=== PATIENT | male | born 1940 | race Caucasian/White ===

== ENCOUNTER 2017-01-07 14:35 | Emergency (ER) | payer MEDICARE, OTHER ==
[~2017-01-07] VITALS: Ht 177.8 cm; Wt 96.4 kg
[2017-01-07 14:41] VITALS: BP 141/90; PULSE 94; RESP 18; O2SAT 98
--- NOTE | 2017-01-07 15:07 | ED.REPORT ---
HPI-Extremity Problem Lower Date of Service Jan 07, 2017 ED Provider: Jose J Galan MD The patient is a 76 year old male with history of diabetes mellitus and gout, who presents to the emergency department complaining of right foot pain that began 2 weeks ago. His pain has became significantly worse in the last few days. His pain is worse with weight bearing and walking. He also reports numbness to his right foot. The pain is not similar to previous gout flares. He denies recent injuries or traumas. He denies rash, fever, chills, nausea or vomiting. Nursing Notes Stated Complaint: R FOOT PAIN Chief Complaint: Extremity Trauma Nursing Notes Reviewed: Yes Allergies: Uncoded Allergies: NARCOTIC PAIN MEDS (Allergy, Severe, difficulty waking him up, 01/07/17) Scheduled PRN Hydrocodone-Acetaminophen 5-325 mg (Hydrocodone-Acetaminophen 5-325 mg) 1 Each Tablet 1 TABLET PO Q4H PRN PRN For Pain General Time Seen by MD: 14:46 Chief Complaint Foot injury right Hx Obtained From: Patient Arrived By: Walk-in Onset Occurred: More than a week ago... Symptom Duration: Since onset Location: : Foot right Quality: Painful Severity: Current: Moderate Severity: Maximum: Moderate Pertinent Negative: Pt denies other symptoms Exacerbated by: Movement Relieved by: Immobilization Recent Healthcare: No recent doctor visit, No recent hospitalization Similar Sx Previous: No Past Medical History Past Medical History Diabetes mellitus Gout Coronary artery disease Past Surgical History CABG Social History Other Social History: Local resident Ambulatory Status Independent Review of Systems Constitutional: Denies: Chills, Fever Musculoskeletal: Reports: Extremity pain, Extremity swelling Neurologic: Reports: Numbness Complete sys rev & neg: except as marked. GI: Denies: Nausea, Vomiting Physical Exam Initial Vital Signs Vital Signs (First) Date Time Temp Pulse Resp B/P Pulse Ox O2 Delivery O2 Flow Rate FiO2 01/07/17 14:41 36.2 94 18 141/90 98 Room Air Initial VS: Reviewed Head / Eyes: Atraumatic, Normocephalic, PERRL ENT: Mucous membranes moist, Conjunctiva normal, No scleral icterus Neck: Supple, Non-tender, Full range of motion Respiratory: Breath sounds normal, Clear to auscultation, No respiratory distress Cardiovascular: Regular rate & rhythm, Heart sounds normal, Intact distal pulses Abdomen / GI: Soft, Non-tender, No guarding, No rebound, No distention Lymphatic: No lymphadenopathy Upper Extremities: Vascular intact, Neuro intact, No swelling, No tenderness Skin: Warm, Dry, No cyanosis Neurologic: Alert, Oriented, Nonfocal Psychiatric: Mood/affect normal, Behavior normal, Normal thought content Lower Extremity / Pelvis / MS: Neurologic intact, Vascular intact, No edema No calf swelling or tenderness Ankle / Foot: Neurologic intact, Vascular intact There is mild swelling about the medial aspect of the right foot beneath the medial malleolus with mild tenderness. There is no significant erythema, warmth or redness. Neurovascular intact. 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 No acute fracture. No osseous lesion. If symptoms and/or clinical suspicion for pathology persist, further assessment with repeat, or advanced imaging (e.g., CT, MRI, or bone scan) may be helpful for further assessment. Dictated by: Christine Foster M.D. on 01/07/2017 at 17:33 X-Ray Ordered: Foot right Interpretation / Wet Read by: Interpret - Radiologist Re-Eval/Medical Decision Med Decision/Clinical Course The patient is a 76 year old male with history of diabetes mellitus and gout, who presents to the emergency department complaining of right foot pain that began 2 weeks ago. Here in the emergency department the patient is afebrile with stable vital signs and examination as above. Plain films of the affected foot demonstrate no acute fracture or bony abnormality. The patient is neurovascularly intact in the affected foot. There is no evidence of abscess or cellulitis. The patient has tenderness about the medial foot with some mild swelling though there is no erythema redness or warmth. The presentation is unconvincing for acute gout flare. I suspect that the patient's pain is musculoskeletal in etiology. I have recommended that he elevate the foot and apply ice packs. He is prescribed a limited supply of [place] as he is unable to take NSAIDs. He will follow up closely with primary care physician and we have referred him to the residency clinic. Prior to discharge follow-up and return precautions were reviewed in detail with the patient who verbalized understanding and agreement with the plan. The patient was discharged in stable condition. Source of Hx: Old records Re-Evaluation/Progress #1: Time of Eval: 16:50 Re-Evaluation/Progress Note: Discussed plan for x-rays and discharge if negative. Will give the patient an outpatient primary care referral. Re-Evaluation/Progress #2: Time of Eval: 17:40 Re-Evaluation/Progress Note: Rechecked the patient. Discussed x-ray results, diagnosis, and plan for discharge. All questions were addressed. Counseled Regarding: Diagnosis, Need for follow-up, When/why to return to ED Discharge & Departure Impression: Primary Impression: Foot pain, right Additional Impression: History of gout Disposition: Home Discharge Condition All VS Reviewed: Yes Condition: Stable Additional Instructions: Thank you for seeking care at the emergency room. Our primary goal today in the ED was to evaluate you for any life-threatening conditions. Your evaluation was reassuring. I see no fractures or signs of infection or fracture. Your presentation does not seem like a gout flare. You will be discharged with a prescription for pain medication. Please elevate your foot and apply ice packs. You should follow-up with a primary doctor in the next week. We have given you a referral to the [facility]. You should return to the ED immediately if you develop increased pain, swelling or redness, fevers, chills, vomiting, or any other concerning signs or symptoms. Thank you for letting us partake in your care today. Narcotic Pain Medicine You have been prescribed a narcotic for pain relief. These drugs are usually combined with acetaminophen (Tylenol#3, Percocet, Darvocet, Anexsia, Vicodin) or aspirin (Empirin#3, Percodan, Synalogs-DC) for increased effect. Narcotics act on the central nervous system to reduce pain; they also impair mental alertness and physical abilities. We advise you not to drink alcohol, drive a car, or operate dangerous equipment when you are taking these drugs. You can lessen stomach irritation from your medicine by taking it with meals or a full glass of water. Common side effects of narcotics are: Nausea and vomiting, heartburn, constipation, dizziness, sleepiness, and mood changes. If you have bothersome side effects or symptoms of an allergic reaction (itching, hives, rash), stop taking your medicine and call your doctor or the emergency room right away. Please keep your narcotic medicine well out of the reach of children. Referrals: [facility] Scribe Attestation Portions of this note were transcribed by Alyson Acosta. I, Dr. Galan personally performed the history, physical exam and medical decision-making; I reviewed and confirmed the accuracy of the information in the transcribed note. Signed by: Lexis Craig, 01/07/2017 at 1745. Jose J Galan MD Jan 07, 2017 15:07 Alyson Acosta Jan 07, 2017 15:17
--- NOTE | 2017-01-07 17:36 | DRSVH ---
PROCEDURE: X-RAY RIGHT FOOT COMPLETE, MINIMUM THREE VIEWS ([id number]) INDICATIONS: r foot pain, medial TECHNIQUE: Region views of the foot were acquired. COMPARISON: None. FINDINGS: Bones: No fractures or dislocations. No suspicious bony lesions. Mild periarticular osteophyte for mation at the 1st metatarsal phalangeal joint. Calcaneal spurring. Soft tissues: No tibiotalar joint effusion. Achilles tendon appears normal. 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 No acute fracture. No osseous lesion. If sy mptoms and/or clinical suspicion for pathology persist, further assessment with repeat, or advanced i maging (e.g., CT, MRI, or bone scan) may be helpful for further assessment. Dictated by: Christine Foster M.D. on 01/07/2017 at 17:33 Approved by: Christine Foster M.D. on 01/07/2017 at 17:33
[2017-01-07] MEDS ORDERED: HYDR-4003 PO (17:39)
[2017-01-07 18:06] VITALS: BP 126/88; PULSE 84; RESP 18; O2SAT 96
== END 2017-01-07 18:09 | disposition home or self-care (01) ==
LOC: SED 14:35
DX: M79.671 Pain in right foot (principal); E11.9 Type 2 diabetes mellitus without complications; I25.10 Atherosclerotic heart disease of native coronary artery without angina pectoris; Z95.1 Presence of aortocoronary bypass graft; Z87.39 Personal history of other diseases of the musculoskeletal system and connective tissue